=== PATIENT | female | born 1975 | race Hispanic/Latino ===

== ENCOUNTER 2023-02-01 21:27 | Emergency (ER) | payer OTHER ==
[~2023-02-01] VITALS: Ht 165.1 cm; Wt 106.5 kg
[~2023-02-01 21:27] MED LIST: DICLOFENAC SODI75 MG PO; ESTRADIOL0.5 MG PO; GLUCOSAMINE-CH1 EA48 PO; HYDROCODON-ACE1 EA10 PO; PROMETRIUM100 MG PO
[2023-02-01 23:47] VITALS: BP 101/62
== END 2023-02-01 23:50 | disposition home or self-care (01) ==
LOC: ED 21:27
DX: G43.109 Migraine with aura, not intractable, without status migrainosus (principal)
CPT/HCPCS: 36415; 70450; 70496; 70498; 80053; 85025; 85651; 96375; 99284-25; J1200; J1885; J2765; J7030; Q9967